=== PATIENT | male | born 1990 | race African-American/Black ===

== ENCOUNTER 2016-06-27 08:07 | Emergency (ER) | payer OTHER ==
[~2016-06-27] VITALS: Ht 170.2 cm; Wt 57.2 kg
[~2016-06-27 08:07] MED LIST: CLARITIN,ALAVAR10 MG PO; ERY-TAB500 MG PO; INDOCIN25 MG PO; MOTRIN600 MG PO; NAPROSYN500 MG PO; NORCO 5/3251 TABLET PO; PEN-VEE K,VEET500 MG PO; PERCOCET 5/31 TABLET PO; PREDNISONE20 MG PO; PROAIR HFA8.5 GM IH; PROAIR RESPICL90 MCG IH; PROVENTIL HFA6.7 GM IH; PROVENTIL,2.5 MG/3 M IH; VENTOLIN HFA18 GM IH; ZITHROMAX Z-PA250 MG PO; ZOFRAN ODT4 MG PO
[2016-06-27] MEDS ORDERED: NAPROSYN500 MG PO (09:59)
[2016-06-27 10:14] VITALS: BP 117/68
== END 2016-06-27 10:39 | disposition home or self-care (01) ==
LOC: EME 08:07
PROC: 2W3GX1Z Immobilization of Right Thumb using Splint (ICD-10-PCS; principal; 2016-06-27)
DX: S62.511A Displaced fracture of proximal phalanx of right thumb, initial encounter for closed fracture (principal); Y04.2XXA Assault by strike against or bumped into by another person, initial encounter
CPT/HCPCS: 73130; 73140; 99281; 99284

== ENCOUNTER 2016-10-16 13:57 | Emergency (ER) | payer OTHER ==
[~2016-10-16] VITALS: Ht 170.2 cm; Wt 57.1 kg
[2016-10-16 16:51] VITALS: BP 103/65
== END 2016-10-16 16:52 | disposition home or self-care (01) ==
LOC: EME 13:57
DX: Z20.2 Contact with and (suspected) exposure to infections with a predominantly sexual mode of transmission (principal)
CPT/HCPCS: 99281; 99283; J0696

== ENCOUNTER 2017-01-07 06:52 | Emergency (ER) | payer OTHER ==
[~2017-01-07] VITALS: Ht 170.2 cm; Wt 56.2 kg
[2017-01-07] MEDS ORDERED: INDOCIN50 MG PO (07:25)
[2017-01-07] MEDS ORDERED: PREDNISONE20 MG PO (08:05)
[2017-01-07] MEDS ORDERED: PROVENTIL HFA6.7 GM IH (08:05)
[2017-01-07 08:10] VITALS: BP 109/80
== END 2017-01-07 08:11 | disposition home or self-care (01) ==
LOC: EME 06:52
DX: J45.901 Unspecified asthma with (acute) exacerbation (principal)
CPT/HCPCS: 94640; 99281; 99284; J7512